=== PATIENT | female | born 1975 | race Caucasian/White ===

== ENCOUNTER 2021-01-02 12:09 | Emergency (ER) | payer MEDICARE ==
[~2021-01-02 12:09] MED LIST: ENULOSE10 GM/15 M PO; IBUPROFEN200 MG PO; IBUPROFEN600 MG PO; ZOFRAN4 MG PO
[2021-01-02 13:20] LABS: HEMOGLOBIN 13.7 gm/dl (12.3-15.3); RED BLOOD COUNT 4.44 M/UL (4.00-5.10); WHITE BLOOD COUNT 7.9 K/UL (4.5-11.0)
[2021-01-02 13:36] LABS: BUN/CREATININE RATIO 13 (0-10)
[2021-01-02] MEDS ORDERED: ZOFRAN4 MG PO (17:08)
[2021-01-02] MEDS ORDERED: GAS RELIEF 8080 MG PO (17:08)
[2021-01-02] MEDS ORDERED: BENTYL 10MG CAP10 MG PO (17:08)
[2021-01-05 22:11] LABS: ADENOVIRUS F 40/41 Not Detected (Not Detected); ASTROVIRUS Not Detected (Not Detected); C DIFFICILE TOXIN A/B Not Detected (Not Detected); CAMPYLOBACTER Not Detected (Not Detected); CRYPTOSPORIDIUM Not Detected (Not Detected); CYCLOSPORA CAYETANENSIS Not Detected (Not Detected); ENTAMOEBA HISTOLYTICA Not Detected (Not Detected); ENTEROAGGREGATIVE E COLI Not Detected (Not Detected); ENTEROPATHOGENIC E COLI Not Detected (Not Detected); ENTEROTOXIGENIC E COLI Not Detected (Not Detected); GIARDIA LAMBLIA Not Detected (Not Detected); NOROVIRUS GI/GII Not Detected (Not Detected); PLESIOMONAS SHIGELLOIDES Not Detected (Not Detected); ROTAVIRUS A Not Detected (Not Detected); SALMONELLA Not Detected (Not Detected); SAPOVIRUS Not Detected (Not Detected); SHIGA-TOXIN-PRODUCING E COLI Not Detected (Not Detected); SHIGELLA/ENTEROINVASIVE E COLI Not Detected (Not Detected); VIBRIO Not Detected (Not Detected); VIBRIO CHOLERAE Not Detected (Not Detected); YERSINIA ENTEROCOLITICA Not Detected (Not Detected)
== END 2021-01-02 17:30 | disposition home or self-care (01) ==
LOC: ER1 12:09
PROVIDERS: Physician Assistant Medical
DX: R10.84 Generalized abdominal pain (principal); R19.7 Diarrhea, unspecified; R11.0 Nausea; Z88.1 Allergy status to other antibiotic agents; Z88.0 Allergy status to penicillin
CPT/HCPCS: 36415; 74018; 80053; 81001; 82150; 83690; 84703; 85025; 85652; 86140; 87507; 99284